=== PATIENT | male | born 1980 | race Caucasian/White ===

== ENCOUNTER 2018-01-24 13:13 | Emergency (ER) | payer OTHER ==
[2018-01-24 13:20] VITALS: BP 136/85
[2018-01-24] MEDS ORDERED: IBUP800T19 PO (13:53)
--- NOTE | 2018-01-24 13:53 | PHYS DOC ---
Past History Past Medical History: No Pertinent History Past Surgical History: No Surgical History Alcohol Use: Occasionally Drug Use: None Adult General Chief Complaint Chief Complaint: FINGER INJURY HPI HPI 87-year-old right-handed male patient states he injured his right middle finger while throwing bowling ball one week ago and since then has pain with limited range of motion flexion of his finger. Patient complaining of marked pain in the index finger of the same hand without neuro deficit. Review of Systems Review of Systems Constitutional: Denies fever or chills [] Eyes: Denies change in visual acuity, redness, or eye pain [] HENT: Denies nasal congestion or sore throat [] Respiratory: Denies cough or shortness of breath [] Cardiovascular: No additional information not addressed in HPI [] GI: Denies abdominal pain, nausea, vomiting, bloody stools or diarrhea [] : Denies dysuria or hematuria [] Musculoskeletal: Denies back pain, reports joint pain [] Integument: Denies rash or skin lesions [] Neurologic: Denies headache, focal weakness or sensory changes [] Endocrine: Denies polyuria or polydipsia [] All other systems were reviewed and found to be within normal limits, except as documented in this note. Physical Exam Physical Exam Constitutional: Well developed, well nourished, no acute distress, non-toxic appearance. [] HENT: Normocephalic, atraumatic, bilateral external ears normal, oropharynx moist, no oral exudates, nose normal. [] Eyes: PERRLA, EOMI, conjunctiva normal, no discharge. [] Neck: Normal range of motion, no tenderness, supple, no stridor. [] Cardiovascular:Heart rate regular rhythm, no murmur [] Extremities: No tenderness, no cyanosis, no clubbing, ROM intact, no edema, left finger without sign of deformity or contusion, limited flexion of proximal phalanx. [] Neurologic: Alert and oriented X 3, normal motor function, normal sensory function, no focal deficits noted. [] Psychologic: Affect normal, judgement normal, mood normal. [] Current Patient Data Vital Signs Vital Signs Date Time Temp Pulse Resp B/P (MAP) Pulse Ox O2 Delivery O2 Flow Rate FiO2 01/24/18 13:20 98.0 58 16 97 Room Air EKG EKG [] Radiology/Procedures Radiology/Procedures [] Course & Med Decision Making Course & Med Decision Making Pertinent Imaging studies reviewed. (See chart for details) X ray of finger did not show fracture. Finger splint was applied and patient instructed to follow up with his primary care physician. [] Dragon Disclaimer Dragon Disclaimer This electronic medical record was generated, in whole or in part, using a voice recognition dictation system. Departure Departure: Impression: Primary Impression: Finger sprain Disposition: HOME, SELF-CARE (At 1351) Condition: STABLE Referrals: GABRIELLE GRACIA (PCP) Patient Instructions: Finger Sprain Additional Instructions: Apply ice on the affected area Follow-up with your primary care physician in 3-5 days Return to ER if not getting better Scripts Ibuprofen (IBUPROFEN) 800 Mg Tablet 1 TAB PO TID, #20 TAB Prov: REKHA BLANCO MD 01/24/18 REKHA BLANCO MD Jan 24, 2018 13:53
--- NOTE | 2018-01-24 14:02 | RAD ---
Indication: Third digit pain for one week. Technique: AP hand and 2 views of the third finger comparison: None Findings: No acute fracture or dislocation. No soft tissue abnormality. Impression: No acute findings.
== END 2018-01-24 14:00 | disposition home or self-care (01) ==
LOC: ER 13:13
DX: S63.612A Unspecified sprain of right middle finger, initial encounter (principal); X58.XXXA Exposure to other specified factors, initial encounter; Y93.89 Activity, other specified; Y99.8 Other external cause status; Y92.89 Other specified places as the place of occurrence of the external cause
CPT/HCPCS: 29130; 73140; 99284